=== PATIENT | male | born 1985 | race Caucasian/White ===

== ENCOUNTER 2016-11-12 11:06 | Emergency (ER) | payer OTHER ==
[~2016-11-12] VITALS: Ht 180.3 cm; Wt 72.6 kg
--- NOTE | 2016-11-12 12:18 | ED GENERAL ADULT ---
History of Present Illness General Chief Complaint: Neck/Upper Back Pain/Injury Stated Complaint: NECK AND SHOULDER PAIN X 1MONTH Source: patient Exam Limitations: no limitations Vital Signs & Intake/Output Vital Signs & Intake/Output Vital Signs Date Time Temp Pulse Resp B/P B/P Pulse O2 O2 Flow FiO2 Mean Ox Delivery Rate 11/12 1315 97.0 80 20 122/88 100 11/12 1229 98.0 70 20 112/72 98 Room Air 11/12 1111 97.6 71 20 115/72 100 Room Air Allergies Coded Allergies: NO KNOWN ALLERGIES (12/24/11) Reconcile Medications No Known Home Medications Triage Note: PT TO ED C/O LEFT SIDED NECK PAIN X 1 MONTH. WENT TO WALK IN YESTERDAY, WAS GIVEN RX FOR MUSCLE RELAXER, WHICH PT NEVER FILLED. DENIES ANY INJURY. Triage Nurses Notes Reviewed? yes Onset: Abrupt Duration: week(s): (4), constant, continues in ED Timing: recent history Injury Environment: home Severity: moderate, severe No Modifying Factors: none HPI: 31-year-old male comes into the emergency room with complaints of left-sided neck pain and left-sided chest pain has been going on for almost a month. Pain is worse with certain range of motion to neck. Patient reports that he has taken [id number] medication with no relief. Denies any fever chills vomiting. Denies any shortness of breath trauma. Denies any past medical history. Denies any injuries that he is aware of. Last night he felt the pain radiating down to his left side of his chest. Denies any other associated symptoms. (ALEX JAIN) Past History Travel History Traveled to [place] past 21 day No Medical History Any Pertinent Medical History? none Surgical History Surgical History: non-contributory Psychosocial History What is your primary language Wallisian Tobacco Use: Never used ETOH Use: occasional use Illicit Drug Use: denies illicit drug use Family History Hx Contributory? No (ALEX JAIN) Review of Systems Review of Systems Constitutional: Reports: no symptoms. EENTM: Reports: no symptoms. Respiratory: Reports: no symptoms. Cardiovascular: Reports: see HPI. GI: Reports: no symptoms. Genitourinary: Reports: no symptoms. Musculoskeletal: Reports: see HPI. Skin: Reports: no symptoms. Neurological/Psychological: Reports: no symptoms. Hematologic/Endocrine: Reports: no symptoms. Immunologic/Allergic: Reports: no symptoms. All Other Systems: Reviewed and Negative (ALEX JAIN) Physical Exam Physical Exam General Appearance: well developed/nourished, no apparent distress, alert Head: atraumatic, normal appearance Eyes: Bilateral: normal appearance, EOMI. Ears, Nose, Throat: normal pharynx, normal ENT inspection, hearing grossly normal Neck: normal inspection, full range of motion Respiratory: normal breath sounds, no respiratory distress Cardiovascular: regular rate/rhythm Back: normal inspection Extremities: normal inspection, normal range of motion, no edema Neurologic/Psych: awake, alert, oriented x 3, normal gait, normal mood/affect Skin: intact, normal color Core Measures ACS in differential dx? No CVA/TIA Diagnosis: No Severe Sepsis Present: No Septic Shock Present: No (ALEX JAIN) Progress Differential Diagnoses I considered the following diagnoses in my evaluation of the patient: Muscle strain, herniated disc, MA, aortic dissection, Plan of Care: Orders Procedure Date/time Status TROPONIN LEVEL 11/12 1217 Complete COMPREHENSIVE METABOLIC PANEL 11/12 1217 Complete CBC WITHOUT DIFFERENTIAL 11/12 1217 Complete EKG 11/12 1217 Active Laboratory Tests 11/12/16 1219: Anion Gap 13, Estimated GFR > 60, BUN/Creatinine Ratio 20.0, Glucose 89, Calcium 9.3, Total Bilirubin 2.9 H, AST 19, ALT 42, Alkaline Phosphatase 45, Troponin I < 0.01, Total Protein 7.6, Albumin 4.6, Globulin 3.0, Albumin/Globulin Ratio 1.5 , CBC w Diff NO MAN DIFF REQ, RBC 5.59, MCV 85.1, MCH 29.1, RDW 13.4, MPV 7.9, Gran % 56.2, Lymphocytes % 31.2, Monocytes % 9.0, Eosinophils % 3.2, Basophils % 0.4, Absolute Granulocytes 3.2, Absolute Lymphocytes 1.8, Absolute Monocytes 0.5 , Absolute Eosinophils 0.2, Absolute Basophils 0, PUBS MCHC 34.2 Diagnostic Imaging: Viewed by Me: Radiology Read. Discussed w/RAD: Radiology Read. Radiology Impression: SERVICE DATE: 11/12/16-1217 EXAM TYPE: RAD - XRY-CERV SPINE 4 OR 5 VIEWS EXAMINATION: XR CERVICAL SPINE CLINICAL INFORMATION: Neck pain COMPARISON: None TECHNIQUE: Cervical spine, 5 views FINDINGS: There is mild levocurvature of the cervical spine. The cervical vertebra have normal height and alignment. The disc spaces are maintained. The anterior and posterior elements appear intact. There is no prevertebral soft tissue swelling. No evidence of osseous stenosis of the neural foramina. The visualized lung apices are clear. IMPRESSION: No acute findings. Mild levocurvature of the cervical spine without evidence of fracture or malalignment. DICTATED BY: TIGRE ESCALANTE MD DATE/TIME DICTATED:11/12/161311 POWER LINE INSTALLER AND REPAIRER:LAINEY DATE/TIME TRANSCRIBED:11/12/161311, SERVICE DATE: 11/12/16 EXAM TYPE: RAD - XRY- CHEST XRAY, PA AND LATERAL EXAMINATION: XR CHEST CLINICAL INFORMATION: Chest pain COMPARISON: None TECHNIQUE: 2 views of the chest were obtained. FINDINGS: No significant abnormality is noted involving the heart, lungs, mediastinum, bony thorax or soft tissues. Incidental azygos fissure is noted in the right upper lobe. IMPRESSION: Normal examination. DICTATED BY: ANNA SCRUGGS MD DATE/ TIME DICTATED:11/12/161312 POWER LINE INSTALLER AND REPAIRER:LAINYE Initial ED EKG: normal intervals, normal p-waves, normal sinus rhythm, rate (77) Comments: 11/12/2016 2:15:56 PM Patient clinically looks well. Nontoxic-appearing. His chest pain is more consistent with muscular pain. It's more neck pain radiating down into his chest. The pain is worse with certain movements. Normal troponin. Pain is been going on for about a month. At this time I do not feel a second EKG and troponin is necessary. Patient does not have any cardiac risk factors. Clinically looks well. Case discussed with Dr. rivera. (ALEX JAIN) Departure Departure Disposition: HOME OR SELF CARE Condition: Stable Clinical Impression Primary Impression: Neck pain Secondary Impressions: Abnormal bilirubin test, Atypical chest pain Referrals: ELIDA ANDERSEN MD (PCP/Family) Additional Instructions: Take ibuprofen at home that was prescribed to you. Moist heat to the neck. Follow-up with your primary care doctor. Follow-up for possible physical therapy. Please go over all results of today's visit with your primary care doctor. Contact your primary care doctor to let them know you were here in the emergency room. There may be nonspecific findings which may not be related to your visit today here in the emergency room but may require further evaluation and chronic monitoring by your primary care doctor. If you had a laceration today the chance of foreign body always remains. You should follow-up with your primary care doctor for recheck in 3-5 days for a wound check. If you had an x-ray done there is a chance that a fracture could have been missed on initial read and you should follow-up with your primary care doctor for repeat x-rays if symptoms persist. If your blood pressure was elevated here in the emergency room please have rechecked by her primary care doctor within the next 48 hours by your primary care doctor. If you were prescribed a narcotic here in the emergency room or any type of controlled substances you're not allowed to drive while taking this medication or operate any type of heavy machinery. Narcotics can make you feel lightheaded dizziness nausea and can cause constipation. You may need to pick up operator a stool softener. Thank you for choosing [facility] emergency room. Please return to the emergency room immediately if you have any other concerns worsening of symptoms. Departure Forms: Customer Survey General Discharge Information Prescriptions: Current Visit Scripts No Known Home Medications (ALEX JAIN) PA/MACHINIST INSTRUCTOR Co-Sign Statement Statement: ED Attending supervision documentation- [] I saw and evaluated the patient. I have also reviewed all the pertinent lab results and diagnostic results. I agree with the findings and the plan of care as documented in the PA's/MACHINIST INSTRUCTOR's documentation. x I have reviewed the ED Record and agree with the PA's/MACHINIST INSTRUCTOR's documentation. [] Additions or exceptions (if any) to the PAs/MACHINIST INSTRUCTOR's note and plan are summarized below: [] (TOBIN MCDONALD,HANSA) Critical Care Note Critical Care Note Critical Care Time: non-applicable (ALEX JAIN)
[2016-11-12 12:30] LABS: ABSOLUTE BASOPHIL COUNT 0 /CUMM (0.0-0.2); ABSOLUTE EOSINOPHIL COUNT 0.2 /CUMM (0.0-0.7); ABSOLUTE GRANULOCYTE CT 3.2 /CUMM (1.4-6.5); ABSOLUTE LYMPH COUNT 1.8 /CUMM (1.2-3.4); ABSOLUTE MONOCYTE COUNT 0.5 /CUMM (0.10-0.60); BASOPHIL % 0.4 % (0.0-2.0); EOSINOPHIL % 3.2 % (0-5); GRANULOCYTE % 56.2 % (42.2-75.2); HEMATOCRIT 47.6 % (42-52); MEAN CORPUSCULAR HGB 29.1 PG (27.0-31.0); MEAN CORPUSCULAR HGB CONC 34.2 G/DL (33.0-37.0); MEAN CORPUSCULAR VOLUME 85.1 FL (80.0-94.0); MEAN PLATELET VOLUME 7.9 FL (7.4-10.4); PLATELET COUNT 262 /CUMM (130-400); RBC DISTRIBUTION WIDTH 13.4 % (11.5-14.5); RED BLOOD CELL CT 5.59 /CUMM (4.70-6.10); WHITE BLOOD CELL COUNT 5.7 /CUMM (4.8-10.8)
[2016-11-12 13:15] VITALS: BP 122/88
--- NOTE | 2016-11-12 13:16 | RADIOLOGY REPORT ---
EXAMINATION: XR CHEST CLINICAL INFORMATION: Chest pain COMPARISON: None TECHNIQUE: 2 views of the chest were obtained. FINDINGS: No significant abnormality is noted involving the heart, lungs, mediastinum, bony thorax or soft tissues. Incidental azygos fissure is noted in the right upper lobe. IMPRESSION: Normal examination.
--- NOTE | 2016-11-12 13:17 | RADIOLOGY REPORT ---
EXAMINATION: XR CERVICAL SPINE CLINICAL INFORMATION: Neck pain COMPARISON: None TECHNIQUE: Cervical spine, 5 views FINDINGS: There is mild levocurvature of the cervical spine. The cervical vertebra have normal height and alignment. The disc spaces are maintained. The anterior and posterior elements appear intact. There is no prevertebral soft tissue swelling. No evidence of osseous stenosis of the neural foramina. The visualized lung apices are clear. IMPRESSION: No acute findings. Mild levocurvature of the cervical spine without evidence of fracture or malalignment.
== END 2016-11-12 14:01 ==
LOC: ERH 11:06
PROVIDERS: Physician Assistant Medical
DX: M54.2 Cervicalgia (principal); R07.89 Other chest pain; R94.5 Abnormal results of liver function studies
CPT/HCPCS: 72050; 93005; 93010

== ENCOUNTER 2018-03-16 22:48 | Emergency (ER) | payer OTHER ==
[2018-03-16 23:20] LABS: ABSOLUTE BASOPHIL COUNT 0 /CUMM (0.0-0.2); ABSOLUTE EOSINOPHIL COUNT 0.4 /CUMM (0.0-0.7); ABSOLUTE GRANULOCYTE CT 3.7 /CUMM (1.4-6.5); ABSOLUTE LYMPH COUNT 2.1 /CUMM (1.2-3.4); ABSOLUTE MONOCYTE COUNT 0.6 /CUMM (0.10-0.60); BASOPHIL % 0.5 % (0.0-2.0); EOSINOPHIL % 5.6 % (0-5); GRANULOCYTE % 53.6 % (42.2-75.2); HEMATOCRIT 44.4 % (42-52); MEAN CORPUSCULAR VOLUME 85.3 FL (80.0-94.0); MEAN PLATELET VOLUME 7.4 FL (7.4-10.4); PLATELET COUNT 284 /CUMM (130-400); RBC DISTRIBUTION WIDTH 13.7 % (11.5-14.5); WHITE BLOOD CELL COUNT 6.8 /CUMM (4.8-10.8)
--- NOTE | 2018-03-16 23:29 | RADIOLOGY REPORT ---
EXAMINATION: CHEST 2 VIEWS CLINICAL INFORMATION: Chest pain. COMPARISON: 11/12/2016. TECHNIQUE: PA and lateral views of the chest obtained. FINDINGS: The lungs are well expanded. No focal infiltrate, effusion, edema, or pneumothorax. Cardiac and mediastinal silhouettes are within normal limits for technique. No acute bony abnormality seen IMPRESSION: No evidence of acute disease
--- NOTE | 2018-03-17 00:50 | ED CARDIAC/CP/PALPITATIONS ---
History of Present Illness General Chief Complaint: Chest Pain Stated Complaint: CHEST PAIN WITH MOVEMENT Source: patient Exam Limitations: no limitations Vital Signs & Intake/Output Vital Signs & Intake/Output Vital Signs Date Time Temp Pulse Resp B/P B/P Pulse O2 O2 Flow FiO2 Mean Ox Delivery Rate 03/17 0130 100 Room Air 03/17 0129 97.1 76 18 121/72 98 Room Air 03/17 0128 98.2 03/16 2300 98.2 78 17 125/76 98 Room Air Allergies Coded Allergies: NO KNOWN ALLERGIES (12/24/11) Reconcile Medications Cyclobenzaprine HCl 10 MG TABLET 1 TAB PO 4 TIMES/DAY PRN MUSCLE SPASM Ibuprofen 800 MG TABLET 1 TAB PO TID PRN pain Triage Note: PT TO ED WITH C/O INTERMITTENT REPRODUCIBLE MID CHEST PAIN X 3 DAYS. DENIES SOB. DOES REPORT MILD DIZZINESS ON STANDING TODAY. -SMOKER. DENIES NAUSEA. Triage Nurses Notes Reviewed? yes Onset: Gradual Duration: day(s): Timing: recent history Location: right neck, left chest Radiation: no radiation Modifying Factors: Worsens With: palpation. Associated Symptoms: right neck muscle spasm HPI: 33 yo gentleman with 3 days of right neck and chest pain. "It feels like a knot... really tender when I press on it." He has no radiating pain. It is worse with palpation. He has no shortness of breath or syncopal symptoms. He is otherwise well. Past History Travel History Traveled to [place] past 21 day No Medical History Any Pertinent Medical History? none Surgical History Surgical History: non-contributory Psychosocial History What is your primary language [facility] Tobacco Use: Never used Family History Hx Contributory? No Review of Systems Review of Systems Constitutional: Reports: no symptoms. EENTM: Reports: no symptoms. Respiratory: Reports: no symptoms. Cardiovascular: Reports: no symptoms. GI: Reports: no symptoms. Genitourinary: Reports: no symptoms. Musculoskeletal: Reports: no symptoms. Skin: Reports: no symptoms. Neurological/Psychological: Reports: no symptoms. Hematologic/Endocrine: Reports: no symptoms. Immunologic/Allergic: Reports: no symptoms. All Other Systems: Reviewed and Negative Physical Exam Physical Exam General Appearance: well developed/nourished, no apparent distress Head: atraumatic, normal appearance Eyes: Bilateral: normal appearance. Ears, Nose, Throat: normal pharynx, normal ENT inspection Neck: normal inspection, supple, full range of motion Respiratory: normal breath sounds, no respiratory distress, left sided chest wall tenderness. left neck musculature tenderness. Cardiovascular: regular rate/rhythm Gastrointestinal: normal bowel sounds, soft, non-tender, no organomegaly Back: normal inspection, normal range of motion Extremities: normal inspection, normal capillary refill, normal range of motion, no edema Neurologic/Psych: no motor/sensory deficits, awake, alert, oriented x 3 Skin: intact, normal color, warm/dry Core Measures ACS in differential dx? No CVA/TIA Diagnosis No Sepsis Present: No Sepsis Focused Exam Completed? No All Positive = PERC Ruled Out: Positive: age < 50 years, heart rate < 100 bpm, O2 sat > 94%, no hemoptysis, no hormone use, no prior DVT or PE, no unilateral leg swellin, no surgery/trauma w/ in 4w. Progress Differential Diagnosis: chest wall pain vs other. Plan of Care: Orders Procedure Date/time Status TROPONIN LEVEL 03/16 2301 Complete LIPASE 03/16 2301 Complete HEPATIC FUNCTION PANEL 03/16 2301 Complete D-DIMER 03/16 2301 Complete CBC WITHOUT DIFFERENTIAL 03/16 2301 Complete BASIC METABOLIC PANEL 03/16 230 Complete AMYLASE 03/16 230 Complete EKG 03/16 2250 Active Laboratory Tests 03/16/18 2310: Anion Gap 11, Estimated GFR > 60, BUN/Creatinine Ratio 17.1, Glucose 97, Calcium 9.4, Total Bilirubin 1.0, Direct Bilirubin 0.1, AST 21, ALT 29, Alkaline Phosphatase 50, Troponin I < 0.01, Total Protein 7.1, Albumin 4.4, Amylase 47, Lipase 44, D-Dimer High Sensitivty < 200, CBC w Diff NO MAN DIFF REQ, RBC 5.20, MCV 85.3, MCH 29.0, MCHC 34.0, RDW 13.7, MPV 7.4, Gran % 53.6, Lymphocytes % 31.2, Monocytes % 9.1, Eosinophils % 5.6 H, Basophils % 0.5, Absolute Granulocytes 3.7, Absolute Lymphocytes 2.1, Absolute Monocytes 0.6, Absolute Eosinophils 0.4, Absolute Basophils 0 Diagnostic Imaging: Viewed by Me: Radiology Read. Discussed w/RAD: Radiology Read. CXR Impression: PATIENT: ELAINE ATKINS PRESENT AGE: 33 PATIENT ACCOUNT NO: [id number] : 85 LOCATION: [facility] ORDERING PHYSICIAN: Oren Croft MD SERVICE DATE: 03/16/18 EXAM TYPE: RAD - XRY- CHEST XRAY, TWO VIEWS EXAMINATION: CHEST 2 VIEWS CLINICAL INFORMATION: Chest pain. COMPARISON: 11/12/2016. TECHNIQUE: PA and lateral views of the chest obtained. FINDINGS: The lungs are well expanded. No focal infiltrate, effusion, edema, or pneumothorax. Cardiac and mediastinal silhouettes are within normal limits for technique. No acute bony abnormality seen IMPRESSION: No evidence of acute disease DICTATED BY: Titus Ramos MD DATE/TIME DICTATED:03/16/182323 MAGAZINE KEEPER:LAINEY DATE/TIME TRANSCRIBED:03/16/182323 CONFIDENTIAL, DO NOT COPY WITHOUT APPROPRIATE AUTHORIZATION. <Electronically signed in Other Vendor System> SIGNED BY: Titus Ramos MD 03/16/182328 Initial ED EKG: sinus, early repolarization, no acute changes. Departure Departure Disposition: HOME OR SELF CARE Condition: Stable Clinical Impression Primary Impression: Chest pain Secondary Impressions: Muscle spasm Referrals: Laquita Medrano MD (PCP/Family) Departure Forms: Customer Survey General Discharge Information Prescriptions: Current Visit Scripts Ibuprofen 1 TAB PO TID PRN pain #30 TAB Cyclobenzaprine HCl 1 TAB PO 4 TIMES/DAY PRN MUSCLE SPASM #30 TAB Ref 1 Comments pt with heart score of 1. sx x 3 days w/ reproducible discomfort... safe for discharge.. gave rx for ibuprofen... close follow up advised. Critical Care Note Critical Care Note Critical Care Time: non-applicable
[2018-03-17] MEDS ORDERED: CYCLOBENZAPRINE10 M1 PO (01:19)
[2018-03-17] MEDS ORDERED: IBUPROFEN800 M1 PO (01:19)
[2018-03-17 01:29] VITALS: BP 121/72
== END 2018-03-17 01:31 ==
LOC: ERH 22:48
PROVIDERS: Pediatrics
DX: M62.838 Other muscle spasm (principal); R07.9 Chest pain, unspecified
CPT/HCPCS: 71046; 93005; 93010